=== PATIENT | female | born 1980 | race Caucasian/White ===

== ENCOUNTER 2016-09-08 08:25 | Inpatient (IN) | payer OTHER ==
[~2016-09-08] VITALS: Ht 167.6 cm; Wt 90.3 kg
[2016-09-08] MEDS ORDERED: PRENATAL TABLE1 EAC2 PO (09:08)
[2016-09-08 10:09] LABS: ABSOLUTE BASOPHIL COUNT 0 /CUMM (0.0-0.2); ABSOLUTE EOSINOPHIL COUNT 0 /CUMM (0.0-0.7); ABSOLUTE GRANULOCYTE CT 4.6 /CUMM (1.4-6.5); ABSOLUTE LYMPH COUNT 2.1 /CUMM (1.2-3.4); ABSOLUTE MONOCYTE COUNT 0.4 /CUMM (0.10-0.60); BASOPHIL % 0.3 % (0.0-2.0); EOSINOPHIL % 0.7 % (0-5); GRANULOCYTE % 64.1 % (42.2-75.2); HEMATOCRIT 36.6 % (37-47); MEAN CORPUSCULAR HGB 31.9 PG (27.0-31.0); MEAN CORPUSCULAR HGB CONC 33.8 G/DL (33.0-37.0); MEAN CORPUSCULAR VOLUME 94.3 FL (81.0-99.0); PLATELET COUNT 167 /CUMM (130-400); RBC DISTRIBUTION WIDTH 12.9 % (11.5-14.5); RED BLOOD CELL CT 3.88 /CUMM (4.20-5.40); WHITE BLOOD CELL COUNT 7.2 /CUMM (4.8-10.8)
--- NOTE | 2016-09-08 10:39 | History & Physical ---
See Addendum General Information and HPI MD Statement: I have seen and personally examined AFSANEH MILLER and documented this H&P. The patient is a 36 year old female at [40] weeks and [1] days gestation who presented with a chief complaint of [REQUEST FOR ELECTIVE INDUCTION OF LABOR]. Source of Information: patient Exam Limitations: no limitations History of Present Illness: 36 YEAR OLD @ 40+1 WEEKS PRESENTS FOR ELECTIVE IOL PRE PT REQUEST. REMARKABLE FOR: 1. PREPREGNANCY UTERINE PROLAPSE. PT WORE A PESSARY FOR MOST OF HER ( 2.5 RING) 2. AMA. ISOLATED CHOROID PLEXUS CYST. NEG CFF DNA. UNREMARKABLE ANATOMY SCAN AT [facility]. PT HAS UNDERGONE WEEKLY BPP WITH NSTS SINCE 35 WEEKS. 3. H/O UTERINE FIBROIDS AND LEFT OVARIAN CYST . PT HAS HAD APPROPRIATE GROWTH AND CYST HAS REMAINED STABLE 4. POST PLAC WITH ANTERIOR ACCESSORY LOBE. 5. rubella non immune Allergies/Medications Allergies: Coded Allergies: No Known Allergies (09/08/16) Home Med list Vit No.130/Iron/FA ( Tablet) 27 MG IRON-800 MCG TABLET 1 TAB PO DAILY (Reported) Compliance With Home Meds: GOOD Past History adjudication specialist History : 3 Para: 1 Last Menstrual Period: 9.8.16 Estimated Delivery Date: 09.07.16 Past adjudication specialist History: X 1 WITHOUT COMPLICATIONS Past Pregnancies Past Pregnancies: Date of Delivery: 03.26.97 Gestational Age: TERM Weight: 7+ LBS Type of Delivery: vaginal Anesthesia: EPIDURAL Place of Delivery: [facility] Complications: NONE Medical History Blood Transfusion Hx: No Neurological: NONE EENT: NONE Cardiovascular: H/O HEART MURMUR A CHILD Respiratory: NONE Gastrointestinal: NONE Hepatic: NONE Renal: NONE Musculoskeletal: NONE Psychiatric: NONE Endocrine: NONE Blood Disorders: anemia (2013) Cancer(s): NONE CLOCK MECHANIC/Reproductive: NONE Surgical History Pertinent Surgical History: none Past Family/Social History Psychosocial History Smoking Status: Never Smoked Review of Systems Review of Systems Constitutional: Reports: no symptoms. EENTM: Reports: no symptoms. Cardiovascular: Reports: no symptoms. Respiratory: Reports: no symptoms. GI: Reports: no symptoms. Genitourinary: Reports: see HPI. Musculoskeletal: Reports: no symptoms. Skin: Reports: no symptoms. Neurological/Psychological: Reports: no symptoms. Hematologic/Endocrine: Reports: no symptoms. Immunologic/Allergic: Reports: no symptoms. All Other Systems: Reviewed and Negative Exam & Diagnostic Data Last 24 Hrs of Vital Signs/I&O Intake & Output 09/08 1600 09/08 0800 09/08 0000 Intake Total Output Total Balance Patient 199 lb Weight Obstetric Exam Wgt Gained During : 30 Pelvimetry: PROVEN TO 7+ LBS Dilation (cm): 4 Effacement (%): 50 Station: -1 Membranes: intact Fluid: unknown Fundal Height (cm): 40 Multiple Gestation? No Contractions: OCC #1 - FHR Baseline: 120 Category: 1 Estimated Weight: 8-9 LBS Presentation: VERTEX Patient for Induction? Yes Lawrence Score Lawrence Score Response Value Cervix Position: posterior 0 Cervix Consistency: soft 2 Cervix Effacement: 30-50% 1 Cervix Dilation: 3-4 cm 2 Total 5 Physical Exam General Appearance Alert, Oriented X3, Cooperative, No Acute Distress Skin No Rashes, No Breakdown, No Significant Lesion HEENT Atraumatic, PERRLA, EOMI, Mucous Membr. moist/pink Cardiovascular Regular Rate Lungs Normal Air Movement Abdomen Normal Bowel Sounds, GRAVID Neurological Normal Gait, Normal Speech, Strength at 5/5 X4 Ext, Normal Tone, Sensation Intact Extremities No Clubbing, No Cyanosis Reproductive (FEMALE) Normal female genitalia Labs Blood Type & Rh: B pos Antibody Screen: neg Hct/Hgb & Platelets #1: 14.3 42 224 Hct/Hgb & Platelets #2: 12.3 37 220 Rubella: nonimmune VDRL #1: neg VDRL #2: neg HbsAg: neg HIV #1: neg HIV #2 neg 1 Hr P. pt refused 3 hour. a repeat 1 hour was 96 Group B Strep: neg Initial Ultrasound: 8.1 Anatomy Ultrasound: 20.4, post plac without previa. has ant accessory lobe. male, chroid plexus cyst , neg anatomy otherwise, one myoma 5cm ant and , left ovary normal Ultrasound for EFW: 50% at 37 weeks (6'13") Genetic Testing: NEG CFFDNA, AFP NEG, CP CYST AT TIME OF ANATOMY SCAN, NO OTHER FINDINGS, NEG CF , NEG HGB ELEC Last 24 Hrs of Labs/Osorio: Laboratory Tests 09/08/16 0852: CBC w Diff NO MAN DIFF REQ, RBC 3.88 L, MCV 94.3, MCH 31.9 H, RDW 12.9, MPV 10.0, Gran % 64.1, Lymphocytes % 29.7, Monocytes % 5.2, Eosinophils % 0.7, Basophils % 0.3, Absolute Granulocytes 4.6, Absolute Lymphocytes 2.1, Absolute Monocytes 0.4, Absolute Eosinophils 0, Absolute Basophils 0, PUBS MCHC 33.8, Urinalysis LIGHT H, Urine Color YEL, Urine Clarity HAZY H, Urine pH 6.5, Ur Specific [place] 1.015, Urine Protein NEG, Urine Ketones NEG, Urine Nitrite NEG, Urine Bilirubin NEG, Urine Urobilinogen 0.2, Ur Leukocyte Esterase SMALL H, Ur Microscopic SEDIMENT EXAMINED, Urine RBC 1-3, Urine WBC 3-5 H, Ur Epithelial Cells MOD H, Urine Bacteria MOD H, Urine Mucus FEW, Urine Hemoglobin TRACE- INTACT, Urine Glucose NEG Assessment/Plan Assessment/Plan: 36 YEAR OLD FEMALE. . FAVORABLE CERVIX AT TERM. 40+1 WEEKS PLAN ELECTIVE IOL. PLAN PITOCIN AND AROM. ANTICIPATE . EPIDURAL PRN. RUBELLA VACCINE PP. As Ranked By This Provider Problem List: 1. Core Measures/Miscellaneous Venous Thromboembolism VTE Risk Factors: / VTE Contraindications: No Contraindications VTE Diagnosis: No Beta Robbie Is Beta Robbie a Home Med? No Antibiotics Is Patient on Antibiotics? No Attending MD Review Statement Attending Statement Attending MD Statement: examined this patient, discuss w/resident/PA/AUTOMOTIVE MAINTENANCE TECHNICIAN
--- NOTE | 2016-09-08 15:04 | RADIOLOGY REPORT ---
EXAMINATION: XR PORTABLE ABDOMEN CLINICAL INFORMATION: Crash/emergency section. COMPARISON: None TECHNIQUE: AP view of the abdomen. FINDINGS: The opacity displacing bowel within the lower abdomen pelvis likely represents the prominent uterus. There are no surgical instruments within the pelvis. Also, there is no evidence of gauze or other unexpected radiopaque foreign body within the pelvis. Within the midline of the projecting over L2-L3 , there is a looped catheter (likely epidural catheter). IMPRESSION: There are no unexpected foreign bodies within the pelvis.
--- NOTE | 2016-09-08 15:45 | RADIOLOGY REPORT ---
EXAMINATION: XR KIDNEYS, URETER, BLADDER CLINICAL INDICATION: Follow-up questionable foreign body. COMPARISON: Abdominal radiograph from 2:31 PM TECHNIQUE: AP view of the abdomen. FINDINGS: Prominent uterus. The epidural catheter has been removed. There are no radiopaque foreign bodies within the examined abdomen or pelvis. IMPRESSION: No radiopaque foreign bodies in the examined abdomen or pelvis.
--- NOTE | 2016-09-08 15:58 | Operative Report ---
Operative/Inv Procedure Report Surgery Date: 09/08/16 Name of Procedure: emergent primary low transverse c section Pre-Operative Diagnosis: Category 3 tracing Post-Operative Diagnosis: Same and double nuchal cord Estimated Blood Loss: 700ml Surgeon/Specialty Person: NATALI HOROWITZ DO Anesthesia: block, epidural Urine Output: 300 nl Drains: shen catheter Specimens: placenta Complications: none Condition: good Operative Indication: This patient is a 36-year-old 3 para 1011 who presented for an elective induction of labor for favorable cervix at term at 40 weeks and 1 day. He was admitted this morning and heart rate tracing was 110s to 120s and reactive , category 1. Pitocin was ordered. At approximately 11:09 AM the patient experienced a heart rate deceleration with a jerome of 60 bpm for a total of 4 minutes which recovered to baseline with oxygenation, repositioning, turning off her Pitocin. scalp electrode was placed. Contractions at that time were about every 5 minutes. The heart rate tracing recovered and she received her epidural. Anesthesia INFORMATION OPERATOR attempted 3 times and ultimately the patient did get comfortable. She had 2 additional but less severe episodes which recovered spontaneously. Her Pitocin had remained off since 11 AM. Finally I was called to the patient's room at approximately 1:15 for bradycardia with a jerome of of 40 bpm which gradually was returning to baseline upon my arrival. Stat was called and the patient was taken to the operating room. She was briefly counseled on the risks, benefits, alternatives of surgery. Delivery was indicated however. Operative/Procedure Note Note: The patient was taken to operating room where heart rate was 120s. Her epidural was redosed. She was then prepped with Betadine. She was draped in the usual sterile fashion. A Pfannenstiel skin incision was made with the scalpel and carried down to the fascia. The fascia was incised with the scalpel and the incision was extended with blunt retraction. Rectus muscles were in the midline with blunt dissection and peritoneum was identified and entered bluntly. Peritoneal incision was then extended superiorly inferiorly with good visualization of bladder. Vesicouterine peritoneum was identified and entered sharply with Metzenbaum scissors. Bladder flap was created digitally. Bladder blade was inserted. The lower uterine segment was then incised in a transverse fashion with the scalpel. Clear fluid was noted. The head was delivered atraumatically a double nuchal cord was then encountered. Nuchal cord was reduced. Head, shoulders, the remainder of the infant was delivered without difficulty. Good cry was noted. was bulb suctioned and the cord was clamped and cut. The infant was handed to the waiting pediatric team. Placenta was delivered with gentle traction on the cord. An accessory lobe had been noted. Uterus was then exteriorized and cleared of all clots and debris. The uterine incision was repassed with 0 Vicryl in a running locking fashion. She was noted to have a hematoma on the left aspect of the lower uterine segment which was observed throughout the case. A second running locking suture was placed in order to obtain excellent hemostasis. An additional [id number]-dlyvv suture was placed in the midline for good hemostasis. The hematoma was reevaluated and did not appear to be expanding however I did have a second physician, and evaluate. Dr. Barger was in agreement that the hematoma was not expanding. I evaluated the uterus posteriorly no evidence of bleeding or hematoma was noted. Should normal-appearing bilateral fallopian tubes and ovaries. I again reevaluated the uterine incision noted to be hemostatic. Hematoma was stable. The uterus was then replaced back into the abdomen and gutters were cleared of all clots and debris. The uterine incision was reevaluated and noted to be hemostatic. Hematoma was stable. Peritoneum was reapproximated with 3-0 Polysorb in a running fashion. Rectus muscles were reapproximated with a single odavji-ry-xygsm suture of 2-0 Vicryl. Fascia was reapproximated 0 Vicryl in a running fashion. Carolyn's layer was reapproximated after irrigation with 3-0 Polysorb. The skin was closed with 4-0 Biosyn on a Shane needle. All sponge lap needle counts were correct 2 and patient was taken to the recovery room in stable condition. Findings: 8'14" male infant with scores of 9,9,9 at 1328 on 2016 double nuchal cord clear fluid Normal-appearing bilateral fallopian tubes and ovaries. Discharge Disposition: childbirth center
--- NOTE | 2016-09-08 17:10 | PN- OBGYN ---
Surgical Brief Attending Note Brief Attending Note: notified by RN that some increased vaginal bleeding and c/o pain. i ordered dilaudid 1mg iv x 1 prior to site planner. now on MUSIC ARTIST. FF at U-2. appropriately tender with fundal massage. I ordered a dose of ofirmev which pt did not think helped significantly. small trickle of blood noted when fundal massage performed. new pad placed. IV pitocin increased to 150ml/hr Pt reevaluated in 20 minutes. continues to c/o pain but vag bleeding improved. Toradol ordered. Plan CBC this evening. Will do sooner if c/o persistent pain. Otherwise, will continue to observe. VSS.
[2016-09-08 21:17] LABS: ABSOLUTE BASOPHIL COUNT 0 /CUMM (0.0-0.2); ABSOLUTE EOSINOPHIL COUNT 0 /CUMM (0.0-0.7); ABSOLUTE GRANULOCYTE CT 12.9 /CUMM (1.4-6.5); ABSOLUTE LYMPH COUNT 1.1 /CUMM (1.2-3.4); ABSOLUTE MONOCYTE COUNT 0.4 /CUMM (0.10-0.60); BASOPHIL % 0.1 % (0.0-2.0); EOSINOPHIL % 0 % (0-5); HEMATOCRIT 33.8 % (37-47); MEAN CORPUSCULAR HGB 32.2 PG (27.0-31.0); MEAN CORPUSCULAR HGB CONC 34.5 G/DL (33.0-37.0); MEAN CORPUSCULAR VOLUME 93.2 FL (81.0-99.0); MEAN PLATELET VOLUME 9.6 FL (7.4-10.4); PLATELET COUNT 159 /CUMM (130-400); RBC DISTRIBUTION WIDTH 12.7 % (11.5-14.5); RED BLOOD CELL CT 3.63 /CUMM (4.20-5.40)
[2016-09-08 21:30] LABS: GRANULOCYTE % 89.3 % (42.2-75.2); WHITE BLOOD CELL COUNT 14.4 /CUMM (4.8-10.8)
[2016-09-09 09:08] LABS: ABSOLUTE BASOPHIL COUNT 0 /CUMM (0.0-0.2); ABSOLUTE EOSINOPHIL COUNT 0 /CUMM (0.0-0.7); ABSOLUTE GRANULOCYTE CT 6.8 /CUMM (1.4-6.5); ABSOLUTE LYMPH COUNT 2.6 /CUMM (1.2-3.4); ABSOLUTE MONOCYTE COUNT 0.5 /CUMM (0.10-0.60); BASOPHIL % 0.3 % (0.0-2.0); EOSINOPHIL % 0.2 % (0-5); GRANULOCYTE % 68.3 % (42.2-75.2); HEMATOCRIT 31.5 % (37-47); MEAN CORPUSCULAR HGB 32.1 PG (27.0-31.0); MEAN CORPUSCULAR HGB CONC 33.9 G/DL (33.0-37.0); MEAN CORPUSCULAR VOLUME 94.5 FL (81.0-99.0); PLATELET COUNT 152 /CUMM (130-400); RBC DISTRIBUTION WIDTH 12.9 % (11.5-14.5); RED BLOOD CELL CT 3.34 /CUMM (4.20-5.40); WHITE BLOOD CELL COUNT 9.9 /CUMM (4.8-10.8)
--- NOTE | 2016-09-09 09:52 | PN- OBGYN ---
Surgical Brief Attending Note Brief Attending Note: Pt doing well. Has not yet been up out of bed but shen catheter removed. tolerating po. tolerating po. +nursing, normal lochia vssaf FF@U inc: c/d/i ext: no calf tenderness, TRACE PEDAL EDEMA Laboratory Tests 09/09/16 0805: CBC w Diff NO MAN DIFF REQ, RBC 3.34 L, MCV 94.5, MCH 32.1 H, RDW 12.9, MPV 10.0, Gran % 68.3, Lymphocytes % 26.1, Monocytes % 5.1, Eosinophils % 0.2, Basophils % 0.3, Absolute Granulocytes 6.8 H, Absolute Lymphocytes 2.6, Absolute Monocytes 0.5, Absolute Eosinophils 0, Absolute Basophils 0, PUBS MCHC 33.9 09/08/160: CBC w Diff NO MAN DIFF REQ, RBC 3.63 L, MCV 93.2, MCH 32.2 H, RDW 12.7, MPV 9.6, Gran % 89.3 H, Lymphocytes % 7.9 L, Monocytes % 2.7, Eosinophils % 0, Basophils % 0.1, Absolute Granulocytes 12.9 H, Absolute Lymphocytes 1.1 L, Absolute Monocytes 0.4, Absolute Eosinophils 0, Absolute Basophils 0, PUBS MCHC 34.5 Microbiology Date/Time Procedure - Status Source Growth 09/08 151 Urine Culture - COLB URINE ROUT Orders Procedure Date/time Status CBC WITHOUT DIFFERENTIAL 09/09 0600 Complete Regular Diet 09/08 D Active CBC WITHOUT DIFFERENTIAL 09/09 1999 Complete Pathway - chart 09/08 1518 Active Misc Message 09/08 1518 Active Wound Care/Dressing 09/08 1518 Active Vital Signs 09/08 1518 Active Shen, Insertion/Removal/Asses 09/08 1518 Active CBC: Device(s) 09/08 1518 Active Activity/Ambulation 09/08 1518 Active CULTURE,URINE 09/08 1518 Active CULTURE,URINE 09/08 1235 Active Pathway - chart 09/08 0837 Active Misc Message 09/08 0837 Active Admit to inpatient 09/08 0837 Active Patient Data 09/08 0837 Active Vital Signs 09/08 0837 Active OB: Monitoring 09/08 0837 Active Activity/Ambulation 09/08 0837 Active URINALYSIS 09/08 0837 Complete CBC WITHOUT DIFFERENTIAL 09/08 836 Complete TYPE & SCREEN (NOT X-MATCH) 09/08 836 Complete Childbirth Center Pt Data 09/08 UNK Active VTE Mechanical Prophylaxis 09/08 UNK Active Shen, Insertion/Removal/Asses 09/08 UNK Active Activity/Ambulation 09/08 UNK Active a/p pod 1. doing well. s/p stat primary LTCS for cat 3 tracing, bradycardia, double nuchal cord. Plan routine pp care.Hemodynamically stable. Drop in H/H appropriate for her surgery and blood loss and accounts for IVF overnight. Continue routine postop care.
--- NOTE | 2016-09-10 10:44 | PN- OBGYN ---
Surgical Brief Attending Note Brief Attending Note: NO COMPLAINTS. DOING WELL. AMBULATING, VOIDING, TOLERATING PAIN AND PO. NORMAL LOCHIA. SOME DIFFICULTY NURSING. PT SUPPLMENTING DUE TO LOW BLOOD SUGAR AND PUMPING TOO. VSSAF FF@U-2 EXT: NO CALF TENDERNESS TRACE PEDAL EDEMA B/L A/P POD 2. DOING WELL. ROUTINE POSTOP CARE. ANTICIPATE DC IN AM. CHIO PP.
[2016-09-10 19:27] VITALS: BP 110/60
[2016-09-11] MEDS ORDERED: DOCUSATE SODIU100 M3 PO (08:59)
[2016-09-11] MEDS ORDERED: PERCOCET 5-3251 EACH PO (08:59)
[2016-09-11] MEDS ORDERED: IBUPROFEN800 M1 PO (08:59)
[2016-09-11] MEDS ORDERED: SIMETHICONE80 M1 PO (08:59)
--- NOTE | 2016-09-11 09:05 | PN- OBGYN ---
Surgical Brief Attending Note Brief Attending Note: POD#3 pt is doing well, ambulating, no complaints. tolerate diet, void without difficulties. + flatus PE: VSS CV RRR lungs CTA B/L Abdomen: sodt, nontender, uterus firm,fundus below umbilicus, incision D/C/I, Lochia mild ext; DcT (-) A/P:36yo, s/p PLTCS,POD#3 1. encourage ambulation and 2. will d/c home, f/u in office 2 wks and 6 wks. 3. RT PP care
== END 2016-09-11 11:59 | DRG 766 ==
LOC: GNO 08:25
PROVIDERS: ADMIT Obstetrics & Gynecology
PROC: 10D00Z1 Extraction of Products of Conception, Low, Open Approach (ICD-10-PCS; principal; 2016-09-08)
DX: O69.81X0 Labor and delivery complicated by cord around neck, without compression, not applicable or unspecified (principal); O35.0XX0 Maternal care for (suspected) central nervous system malformation in fetus, not applicable or unspecified; O76 Abnormality in fetal heart rate and rhythm complicating labor and delivery; Z3A.40 40 weeks gestation of pregnancy; Z37.0 Single live birth; O09.523 Supervision of elderly multigravida, third trimester; O34.523 Maternal care for prolapse of gravid uterus, third trimester; O34.83 Maternal care for other abnormalities of pelvic organs, third trimester; N83.202 Unspecified ovarian cyst, left side; O34.13 Maternal care for benign tumor of corpus uteri, third trimester; Z96.0 Presence of urogenital implants; D25.1 Intramural leiomyoma of uterus; Z87.42 Personal history of other diseases of the female genital tract
CPT/HCPCS: GNOS; 74000; 81001; 87086; J0131; J0690; J1170; J1885; J2405; J7120